=== PATIENT | male | born 1970 | race Caucasian/White ===

== ENCOUNTER 2016-03-29 10:57 | Emergency (ER) | payer OTHER ==
[2016-03-29 11:07] VITALS: BP 138/59; PULSE 75; RESP 20; TEMP 98.2
--- NOTE | 2016-03-29 11:09 | ED ---
General Adult HPI - General Chief complaint: Overdose Stated complaint: Overdose Time Seen by Provider: 03/29/16 10:58 Source: patient, EMS, RN notes reviewed Mode of arrival: EMS Limitations: no limitations - History of Present Illness Initial comments: Patient is a pleasant 46-year-old male presenting to the emergency department following heroin overdose. Patient admits to using heroin, snorting it just prior to arrival. Patient wanted to use some prior to being admitted to [facility]. Patient became unarousable. EMS states they did place a line and patient became more arousable in route. Patient states he feels fine at this time and has no complaints. Patient denies any trauma. No chest pain. Patient does use heroin regularly. Patient does inject and started. Patient occasionally uses other drugs however not recently. Patient states he has not slept in the past couple of days. - Related Data Home Medications Medication Instructions Recorded Confirmed No Known Home Medications [No 03/29/16 03/29/16 Known Home Medications] Allergies Allergy/AdvReac Type Severity Reaction Status Date / Time No Known Allergies Allergy Verified 03/29/16 11:32 Review of Systems ROS Statement: Those systems with pertinent positive or pertinent negative responses have been documented in the HPI. ROS Other: All systems not noted in ROS Statement are negative. Constitutional: Denies: fever, chills Eyes: Denies: eye pain ENT: Denies: ear pain Respiratory: Denies: dyspnea Cardiovascular: Denies: chest pain Endocrine: Reports: fatigue Gastrointestinal: Denies: abdominal pain Genitourinary: Denies: dysuria Musculoskeletal: Denies: back pain Skin: Denies: rash Neurological: Denies: headache Past Medical History Past Medical History: No Reported History History of Any Multi-Drug Resistant Organisms: None Reported Past Surgical History: No Surgical Hx Reported Past Psychological History: No Psychological Hx Reported Smoking Status: Current every day smoker Past Alcohol Use History: None Reported Past Drug Use History: Heroin General Exam Limitations: no limitations General appearance: alert, in no apparent distress Head exam: Present: atraumatic Eye exam: Present: normal appearance, PERRL ENT exam: Present: normal oropharynx Neck exam: Present: normal inspection Respiratory exam: Present: normal lung sounds bilaterally Cardiovascular Exam: Present: regular rate, normal rhythm GI/Abdominal exam: Present: soft. Absent: tenderness Extremities exam: Present: normal inspection Neurological exam: Present: alert, CN II-XII intact. Absent: motor sensory deficit Expanded Motor strength exam: RUE: 5, LUE: 5, RLE: 5, LLE: 5 Eye Response: (4) open spontaneously Motor Response: (6) obeys commands Verbal Response: (5) oriented Psychiatric exam: Present: normal affect, normal mood Skin exam: Absent: rash Course Vital Signs 03/29/16 11:01 Temperature 98.2 F Pulse Rate 75 Respiratory 20 Rate Blood Pressure 138/59 O2 Sat by Pulse 100 Oximetry Medical Decision Making - Medical Decision Making Patient reexamined and is alert and appropriate. Patient has been observed for an hour in the emergency department. Patient has not been given Narcan prior to arrival as confirmed by EMS. Patient feels comfortable with discharge. 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 Disposition Clinical Impression: Drug overdose Disposition: HOME SELF-CARE Condition: Stable Instructions: Narcotic Abuse (ED), Opioid Overdose (ED) Additional Instructions: Please discharged back to [facility]. Return for worsening symptoms or other concerns. Discontinue drug use. Referrals: Nonstaff,Physician [Primary Care Provider] - 1-2 days Estelle Melendez MD [STAFF PHYSICIAN] - 1-2 days
== END 2016-03-29 12:02 | disposition home or self-care (01) ==
LOC: EC 10:57
DX: T40.1X1A Poisoning by heroin, accidental (unintentional), initial encounter (principal); F17.200 Nicotine dependence, unspecified, uncomplicated
CPT/HCPCS: 99284